=== PATIENT | female | born 1945 | race Two or more races ===

== ENCOUNTER 2021-07-27 07:32 | Outpatient (CLI) | payer MEDICARE, MEDICAID | END 2021-07-27 23:59 | disposition home or self-care (01) | LOC: LAB 07:32 | PROVIDERS: ATTEND Obstetrics & Gynecology | DX: Z01.812 Encounter for preprocedural laboratory examination (principal); Z20.822 Contact with and (suspected) exposure to COVID-19 | CPT/HCPCS: C9803; U0003 ==

== ENCOUNTER 2021-07-30 08:44 | Day surgery (SDC) | payer MEDICARE, OTHER ==
[2021-07-30] MEDS ORDERED: FAMOTIDINE/PF INJ 20 MG/2 ML VIAL IV ONE (09:42)
[2021-07-30] MEDS ORDERED: FENTANYL PF 100MCG/2ML AMPUL ONE (09:42)
[2021-07-30] MEDS ORDERED: ROCURONIUM BROMIDE 50 MG/5 ML ONE (09:42)
[2021-07-30] MEDS ORDERED: BACITRACIN ZINC OINT (15 GM) 15 GM TUBE TP ONE (10:52)
[2021-07-30] MEDS ORDERED: FERRIC SUBSULFATE 8 GM/VIAL VIAL TP ONE (11:00)
[2021-07-30] MEDS ORDERED: HYDROMORPHONE 1 MG/1 ML DISP.SYRIN ONE (11:40)
[2021-07-30] MEDS ORDERED: ONDANSETRON HCL/PF 4 MG/2 ML VIAL ONE (11:47)
== END 2021-07-30 12:51 | disposition home or self-care (01) ==
LOC: DS 08:44
PROVIDERS: ATTEND Obstetrics & Gynecology
DX: N92.4 Excessive bleeding in the premenopausal period (principal); I10 Essential (primary) hypertension; E78.5 Hyperlipidemia, unspecified; E11.9 Type 2 diabetes mellitus without complications; Z98.890 Other specified postprocedural states; Z79.899 Other long term (current) drug therapy
CPT/HCPCS: 58558; 71045; 82962 ×2; 88305; 93005; A4217 ×2; A4338; J0330; J0690; J1100; J1170; J2405 ×2; J2704; J3010; J3490 ×3; J7030